=== PATIENT | male | born 1965 | race Caucasian/White ===

== ENCOUNTER 2025-02-23 23:54 | Inpatient (IN) ==
[2025-02-24] MEDS: SODIUM CHLORIDE 0.9% 1,000 ML IV ONE (00:05)
--- NOTE | 2025-02-24 00:08 | Emergency Department Note ---
Impression & Plan Atrial fibrillation with controlled ventricular rate, Atrial fibrillation, new onset, Hypophosphatemia ED Provider Note NAME: HOLLY [id number] FREDIS AGE: 59 SEX: M : 1965 ARRIVES VIA: Ambulance INFORMANT: Patient ED PROVIDER(S): Sage Peacock MD CHIEF COMPLAINT: Atrial fibrillation, palpitations, chest pain PLAN: Disposition: Admit MEDICAL DECISION MAKING: The patient is a 59-year-old gentleman, presenting inmate at [facility] who reports a history of tachycardia where he was prescribed metoprolol as needed by his doctor in the past, hypertension who presents to the emergency department from his residential facility, referred by the [facility], for evaluation of tachycardia in the 160-200s suspected to be in atrial fibrillation. Patient was given his oral metoprolol by the [facility] without significant effect. Upon EMS arrival they did attempt fluid challenge but did remain with heart rate in the 160s. Per my discussion with EMS crew on medical command they did administer 10 mg of IV diltiazem without significant change in rate still in the 150s-160s. The patient reports having significant palpitations prior to presentation of [facility] but at this time denies any particular sensation of palpitations or heart racing despite his heart rate in the 150s-160s. He reports having mild amount of left lower anterior chest pain which resolves without intervention. He denies any recent illness including fevers, chills, cough, congestion, GI or symptoms. On evaluation the patient is no acute distress, afebrile heart in the 160s in atrial fibrillation with blood pressure 140/80s and vital signs otherwise stable. Appears clinically dry. EKG demonstrates atrial fibrillation with RVR with a rate of [address] elevation or depression. Chest x-ray negative for acute cardiopulmonary process per my preliminary independent interpretation. WBC, H/H and platelets within normal limits. Chemistry without metabolic acidosis. Phosphorus 1.8 with oral repletion provided. Electrolytes otherwise unremarkable. LFTs are unremarkable. High-sensitivity troponin is 3.7, within normal limits. Lipase normal. TSH within limits. UA without evidence of infection. Urine drug screen was negative. Patient was treated with IV fluid hydration and 20 mg dose of diltiazem in addition to the 10 mg that he had received prior to arrival. Patient subsequently had effective rate control to the 80s. Patient agrees with plan for admission for further management. Case was [facility] who will evaluate the patient for admission. Further management including additional maintenance rate control and anticoagulation per admitting team. Triage Nursing notes reviewed and agree them. Prior/external medical records reviewed Vital Signs: reviewed Differential diagnosis: Premature contractions, electrolyte abnormality, cardiac dysrhythmia, thyroid dysfunction, pulmonary embolism, infection, gastrointestinal, as well as other pathologies. ER treatment provided: See below. Diagnostics interpreted by me: ECG: Atrial fibrillation with RVR, 157 bpm, no ectopy, nonspecific ST and T wave abnormality, no overt ST elevation or depression, QTc 478, QRS 84. Cardiac Monitoring: An order for continuous cardiac monitoring was placed and demonstrated Atrial fibrillation with RVR, 157 bpm, no ectopy. Laboratory studies: See below Imaging studies: See below [facility]ation([facility] HPI: Per MDM. ROS: See above HPI for pertinent positives & negatives. A total of 10 systems reviewed and were otherwise negative. VITALS:See Below PHYSICAL EXAMINATION: GENERAL: Awake, alert, in no distress, BMI 27.8. HENT: Normocephalic, atraumatic. Oropharynx with dry mucous membranes and otherwise unremarkable. EYES: Normal conjunctiva. Sclera non-icteric. NECK: Supple. No nuchal rigidity. FROM. No JVD. RESPIRATORY: Clear to auscultation. CARDIAC: Tachycardic rate, irregular rhythm. Extremities warm and well perfused. Pulses equal. ABDOMEN: Soft, non-distended. No tenderness to palpation. No rebound or guarding. No masses. MUSCULOSKELETAL: Chest examination reveals no tenderness. The back is symmetrical on inspection without obvious abnormality. There is no CVA tenderness to palpation. No joint edema. LOWER EXTREMITIES: Calves are equal size bilaterally and non-tender. No edema. No discoloration. NEURO: Normal sensorium. No sensory or motor deficits noted. SKIN: No rash or jaundice noted. ED COURSE: Critical Care: I have personally spent greater than 35 minutes of critical care time in the direct management of this patient. This includes bedside care, interpretation of diagnostic studies, and testing, discussion with consultants, patient, and family members, and other required patient management activities. This 35 minutes is in excess of all separately billable procedures. Sage Peacock MD Past Med/Surg History Problem List (Updated 02/24/25 @ 13:20 by Josue Singh DO) Paroxysmal atrial fibrillation with rapid ventricular response Family history of hypercoagulable state History of gastric ulcer Dyslipidemia, goal LDL below 100 HTN (hypertension) Atrial fibrillation with rapid ventricular response Hypophosphatemia (Acute) Atrial fibrillation, new onset (Acute) Atrial fibrillation with controlled ventricular rate (Acute) Social History Smoking Status: Never smoker Second Hand Exposure: No; Do You Dip or Chew Tobacco: No; Tobacco Cessation Education Requested by Patient: No Hx Alcohol Use: No Hx Substance Use: No Preferred Language: Croatian Communication Ability: Effective Cover Stripper Required: No Beliefs That Will Affect Care: None Current Living Situation: Other Current Living Situation Comment: [facility] Other Information That Helps Us Care for You: No Feels Safe at Home: Yes Safety Concerns: Feels Safe At This Time Assistive Devices: None Allergies Allergies Allergy/AdvReac Type Severity Reaction Status Date / Time Sulfa (Sulfonamide Allergy Unknown Unknown Verified 02/24/25 00:17 Antibiotics) Home Meds Home Medications Medication Instructions Recorded Confirmed aspirin 81 mg tablet,delayed 81 mg PO DAILY 02/24/25 02/24/25 release atorvastatin 20 mg tablet 20 mg PO DAILY 02/24/25 02/24/25 losartan 25 mg tablet 25 mg PO DAILY 02/24/25 02/24/25 metoprolol tartrate 25 mg tablet 12.5 mg PO BID PRN Tachycardia 02/24/25 02/24/25 omeprazole 20 mg capsule,delayed 20 mg PO BID 02/24/25 02/24/25 release Results & Data (ED) Vital Signs Vital Signs - 24 hr 02/23/25 23:54 02/23/25 23:54 02/23/25 23:54 Temperature 36.6 C 36.6 C Temperature Source Oral Oral Pulse Rate 157 H Pulse Rate [Apical] 154 H Pulse Rate from SpO2 Sensor Pulse Rhythm Regular Pulse Rhythm [Apical] Regular Pulse Strength Normal Pulse Strength [Apical] Normal Respiratory Rate 18 18 Respiratory Effort / Characteristics Non-Labored Spontaneous Non-Labored Spontaneous Respiratory Depth Normal Normal Respiratory Pattern Regular Regular Blood Pressure 145/85 H Blood Pressure [Right Arm] 145/85 H Blood Pressure Mean 105 Blood Pressure Mean [Right Arm] 105 Blood Pressure Position Semi-fowlers Blood Pressure Position [Right Arm] Semi-fowlers Pulse Oximetry 99 98 98 Oxygen Delivery Method Room Air Room Air Room Air Sepsis Recent Fever Within 48 Hours No Sepsis New/Unexplained Change in Mental Status N/A Sepsis Action Taken by Nursing No Action Required 02/23/25 23:57 02/23/25 23:59 02/24/25 00:01 Temperature Temperature Source Pulse Rate 157 H 162 H 155 H Pulse Rate [Apical] Pulse Rate from SpO2 Sensor Pulse Rhythm Pulse Rhythm [Apical] Pulse Strength Pulse Strength [Apical] Respiratory Rate 15 16 Respiratory Effort / Characteristics Respiratory Depth Respiratory Pattern Blood Pressure 146/107 H 145/85 H Blood Pressure [Right Arm] Blood Pressure Mean 124 104 Blood Pressure Mean [Right Arm] Blood Pressure Position Blood Pressure Position [Right Arm] Pulse Oximetry 95 95 Oxygen Delivery Method Sepsis Recent Fever Within 48 Hours Sepsis New/Unexplained Change in Mental Status Sepsis Action Taken by Nursing 02/24/25 00:02 02/24/25 00:24 02/24/25 00:30 Temperature Temperature Source Pulse Rate 158 H 63 Pulse Rate [Apical] 88 Pulse Rate from SpO2 Sensor Pulse Rhythm Regular Pulse Rhythm [Apical] Pulse Strength Pulse Strength [Apical] Respiratory Rate 18 17 14 Respiratory Effort / Characteristics Non-Labored Spontaneous Respiratory Depth Normal Respiratory Pattern Regular Blood Pressure 96/83 L Blood Pressure [Right Arm] 117/92 Blood Pressure Mean 88 Blood Pressure Mean [Right Arm] 100 Blood Pressure Position Blood Pressure Position [Right Arm] Pulse Oximetry 98 97 96 Oxygen Delivery Method Room Air Room Air Sepsis Recent Fever Within 48 Hours Sepsis New/Unexplained Change in Mental Status Sepsis Action Taken by Nursing 02/24/25 00:33 02/24/25 01:00 02/24/25 01:09 Temperature Temperature Source Pulse Rate 68 71 71 Pulse Rate [Apical] Pulse Rate from SpO2 Sensor 69 Pulse Rhythm Pulse Rhythm [Apical] Pulse Strength Pulse Strength [Apical] Respiratory Rate 14 12 Respiratory Effort / Characteristics Respiratory Depth Respiratory Pattern Blood Pressure 109/88 Blood Pressure [Right Arm] Blood Pressure Mean 95 Blood Pressure Mean [Right Arm] Blood Pressure Position Blood Pressure Position [Right Arm] Pulse Oximetry 98 98 Oxygen Delivery Method Sepsis Recent Fever Within 48 Hours Sepsis New/Unexplained Change in Mental Status Sepsis Action Taken by Nursing Laboratory Data Attestation: I reviewed the patient's lab results. 02/24/25 00:08 02/24/25 00:08 Lab Results 02/24/25 02/24/25 02/24/25 Range/Units 00:08 00:09 00:30 WBC 7.34 (4.8-10.8) K/ul RBC 5.31 (4.70-6.10) M/uL Hgb 15.8 (14.0-18.0) g/dl POC Hgb 14.3 (14.0-18.0) g/dl Hct 44.1 (42.0-52.0) % POC Hct 42 (42-52) % MCV 83.1 (80.0-100.0) fL MCH 29.8 (25.0-34.0) pg MCHC 35.8 (32.0-36.0) g/dL RDW Std Deviation 37.3 (36.4-46.3) fL RDW Coeff of Cailin 12.3 (11.5-14.5) % Plt Count 231 (130-400) K/uL MPV 9.6 (9.4-12.4) fL Immature Gran % (Auto) 0.3 % Neut % (Auto) 53.8 % Lymph % (Auto) 29.4 % [place] % (Auto) 11.3 % Eos % (Auto) 4.2 % Baso % (Auto) 1.0 % Neut # (Auto) 3.95 (1.40-6.50) K/uL Lymph # (Auto) 2.16 (1.20-3.40) K/uL [place] # (Auto) 0.83 H (0.11-0.59) K/uL Eos # (Auto) 0.31 (0.00-0.50) K/uL Baso # (Auto) 0.07 (0.00-0.20) K/uL Immature Gran # (Auto) 0.02 (0.01-0.20) K/uL PT Cancelled INR Cancelled POC Sodium 139 (135-144) mmol/L Sodium 139 (136-145) mmol/L POC Potassium 3.9 (3.3-5.0) mmol/L Potassium 3.9 (3.5-5.1) mmol/L POC Chloride 105 (101-112) mmol/L Chloride 107 (98-107) mmol/L Carbon Dioxide 24 (21-32) mmol/L POC Total CO2 22 L (24-31) mmol/L Anion Gap 8 (3-11) POC Anion Gap 17.0 (16-25) mmol/L POC BUN 13 (7-18) mg/dl BUN 14 (6-23) mg/dl Creatinine 0.91 (0.6-1.4) mg/dl POC Creatinine 0.9 (0.6-1.3) mg/dl Est Cr Clr Drug Dosing 95.0 ml/min eGFR 98.30 BUN/Creatinine Ratio 15.4 (10-20) Glucose 102 H (70-99(Fasting)) mg/dl POC Glucose (other) 101 H (70-99) mg/dl Calcium 8.8 (8.6-10.3) mg/dl POC Ioniz Calcium Lindsey 1.06 L (1.12-1.32) mmol/l Phosphorus 1.8 L (2.5-4.9) mg/dl Magnesium 2.0 (1.7-2.4) mg/dl Total Bilirubin 0.7 (0.2-1.0) mg/dl AST 18 (13-39) U/L ALT 18 (7-52) U/L Alkaline Phosphatase 79 (34-104) U/L Troponin I High Sens 3.7 (0-20) pg/ml Total Protein 6.2 (6.0-8.3) gm/dl Albumin 4.2 (3.4-5.0) gm/dl Globulin 2.0 L (2.5-4.0) gm/dl Albumin/Globulin Ratio 2.1 H (0.9-2) Lipase 21 (11-82) U/L TSH 3.429 (0.300-4.500) uIu/ml Urine Color Yellow Urine Appearance Clear (Clear) Urine pH 8.5 H (4.5-7.5) Ur Specific [place] 1.005 (1.000-1.030) Urine Protein Negative (Negative) Urine Glucose (UA) Negative (Negative) Urine Ketones Negative (Negative) Urine Blood Negative (Negative) Urine Nitrite Negative (Negative) Urine Bilirubin Negative (Negative) Urine Urobilinogen Negative (Negative) Ur Leukocyte Esterase Negative (Negative) Urine Comment Urine Opiates Screen Neg (Neg) Ur Methadone, Qual Neg (Neg) Urine Fentanyl Screen Neg (Neg) Urine Barbiturates Neg (Neg) Ur Phencyclidine (PCP) Neg (Neg) U Amphetamin/Meth Scrn Neg (Neg) MDMA (Ecstasy) Screen Neg (Neg) U Benzodiazepines Scrn Neg (Neg) Ur Cocaine Metabolite Neg (Neg) U Marijuana (THC) Screen Neg (Neg) Administered Medications Apixaban (Apixaban 5 Mg Tablet) 5 mg PO BID BUCKY Stop: 03/26/25 08:59 Last Admin: 02/24/25 09:02 Dose: 5 mg Documented By: LOYD Atorvastatin Calcium (Atorvastatin 20 Mg Tab) 20 mg PO DAILY BUCKY Stop: 03/26/25 08:59 Last Admin: 02/24/25 09:02 Dose: 20 mg Documented By: LOYD Metoprolol Succinate (Metoprolol Succ 25mg Ext Rel Tab) 25 mg PO BID BUCKY Stop: 03/26/25 11:44 Last Admin: 02/24/25 14:38 Dose: 25 mg Documented By: LOYD Pantoprazole Sodium (Pantoprazole 40 Mg Tab) 40 mg PO BID BUCKY Stop: 03/26/25 08:59 Last Admin: 02/24/25 09:02 Dose: 40 mg Documented By: LOYD Discontinued Medications Diltiazem HCl (Diltiazem Hcl 5 Mg/Ml 5 Ml Vial) 20 mg IV NOW STA Stop: 02/24/25 00:15 Last Admin: 02/24/25 00:22 Dose: 20 mg Documented By: MEAGAN Co-signed By: PATRICIA Sodium Chloride (Nss) 1,000 mls @ 999 mls/hr IV .Q1H1M ONE Stop: 02/24/25 01:02 Last Infusion: 02/24/25 02:11 Dose: Infused Documented By: Admin: 02/24/25 00:05 Dose: 999 mls/hr Documented By: IDD Potassium Phosphate 40 mmol/ (Sodium Chloride) 1,013.3333 mls @ 100 mls/hr IV ONE STA Stop: 02/24/25 11:06 Last Infusion: 02/24/25 11:41 Dose: Infused Documented By: Admin: 02/24/25 01:33 Dose: 100 mls/hr Documented By: CTK Sodium Chloride (Nss) 1,000 mls @ 75 mls/hr IV .[id number] STA Stop: 02/24/25 14:55 Last Infusion: 02/24/25 07:53 Dose: Infused Documented By: Admin: 02/24/25 02:04 Dose: 75 mls/hr Documented By: DANDRE Heparin Sodium/Dextrose (Heparin 84545 Unit/500 Ml D5w) 25,000 units in 500 mls @ 27 mls/hr IV .[id number] [facility]; Protocol Stop: 03/26/25 01:59 Last Titration: 02/24/25 07:53 Dose: Infused Documented By: LOYD Co-signed By: RUDOLPH Titration: 02/24/25 06:55 Dose: 1,350 units/hr, 27 mls/hr Documented By: MERVIN Co-signed By: LOYD Titration: 02/24/25 03:27 Dose: 1,350 units/hr, 27 mls/hr Documented By: MERVIN Co-signed By: HENOK Admin: 02/24/25 02:06 Dose: 1,350 units/hr, 27 mls/hr Documented By: DANDRE Co-signed By: ELADIA Ioversol (Optiray 320 125ml) 125 ml IV ONCE ONE Stop: 02/24/25 03:16 Last Admin: 02/24/25 03:15 Dose: 118 ml Documented By: ADELAIDE Losartan Potassium (Losartan Potassium 25 Mg Tab) 25 mg PO DAILY [facility] Stop: 03/26/25 08:59 Last Admin: 02/24/25 09:02 Dose: 25 mg Documented By: LOYD Metoprolol Tartrate (Metoprolol Tartrate 25 Mg Tab) 12.5 mg PO NOW STA Stop: 02/24/25 06:17 Last Admin: 02/24/25 06:55 Dose: 12.5 mg Documented By: MERVIN Nitroglycerin (Nitroglycerin Sl 0.4 Mg/Tab Tab) 0.4 mg SL NOW STA Stop: 02/24/25 01:16 Last Admin: 02/24/25 02:03 Dose: 0.4 mg Documented By: DANDRE Oxycodone HCl (Oxycodone Hcl Ir 5 Mg Tab (Immediate Release)) 5 mg PO NOW STA Stop: 02/24/25 02:17 Last Admin: 02/24/25 02:43 Dose: 5 mg Documented By: DANDRE Potassium Phosphate (Pot Phosphate Monobasic W/ Sod Tab) 2 tab PO NOW STA Stop: 02/24/25 00:52 Last Admin: 02/24/25 01:00 Dose: 2 tab Documented By: PJP Potassium Phosphate (Pot Phosphate Monobasic W/ Sod Tab) 2 tab PO ONE ONE Stop: 02/24/25 07:05 Last Admin: 02/24/25 11:32 Dose: 2 tab Documented By: CA Imaging Data Radiologist's Impression: Chest X-Ray 02/24/25 00:02 EXAM: XR chest 1V portable CLINICAL HISTORY: Chest pain, nonspecific TECHNIQUE: X-ray images of the chest are obtained in AP projection. COMPARISON: No prior studies are available for comparison. FINDINGS: Pulmonary Parenchyma: Lungs are clear bilaterally. No evidence of consolidation, collapse, or focal opacities. No pulmonary nodules are identified. No evidence of pleural effusion or pleural thickening. Heart and Mediastinum: Heart size and shape are normal. No mediastinal widening or masses. No hilar or mediastinal lymphadenopathy. Bony Thorax: Bony thorax appears intact without fractures or deformities. Soft Tissues: Soft tissues overlying the chest wall are unremarkable. Overlying monitor lead is seen. IMPRESSION: 1. No evidence of consolidation, collapse, or focal opacities. 2. No evidence of pleural effusion. Electronically signed by Johan Salamanca 02-24-2025 02:22 AM Discharge Plan Visit Data Chief Complaint: Cardiac Assessment Stated Complaint: CARDIAC ASSESSMENT ED Provider: Sage Peacock Discharge Problem: Atrial fibrillation with controlled ventricular rate, Atrial fibrillation, new onset, Hypophosphatemia Patient Disposition: Admitted As Inpatient Condition: Serious Discharge Instructions Interventions: ED Discharge Assessment Last Done: 02/24/25 02:50
[2025-02-24] MEDS: dilTIAZem HCl 5 MG/ML 5 ML VIAL IV STA (00:22)
[2025-02-24 00:24] LABS: Basophils # (auto) 0.07 K/uL (0.00-0.20); Eosinophils # (auto) 0.31 K/uL (0.00-0.50); Eosinophils % (auto) 4.2 %; Hematocrit (blood only) 44.1 % (42.0-52.0); Hemoglobin 15.8 g/dl (14.0-18.0); Immature Granulocytes # (auto) 0.02 K/uL (0.01-0.20); Immature Granulocytes % (auto) 0.3 %; Lymphocytes # (auto) 2.16 K/uL (1.20-3.40); Lymphocytes % (auto) 29.4 %; Mean Corpuscular Hemoglobin 29.8 pg (25.0-34.0); Mean Corpuscular Hgb Conc 35.8 g/dL (32.0-36.0); Mean Corpuscular Volume 83.1 fL (80.0-100.0); Mean Platelet Volume 9.6 fL (9.4-12.4); Monocytes # (auto) 0.83 K/uL (0.11-0.59); Monocytes % (auto) 11.3 %; Neutrophils # (auto) 3.95 K/uL (1.40-6.50); Neutrophils % (auto) 53.8 %; Platelet Count 231 K/uL (130-400); RDW Coefficient of Variation 12.3 % (11.5-14.5); RDW Standard Deviation 37.3 fL (36.4-46.3); Red Blood Count 5.31 M/uL (4.70-6.10); White Blood Count 7.34 K/ul (4.8-10.8)
[2025-02-24 00:42] LABS: Appearance Urine Clear (Clear); Bilirubin Urine Negative (Negative); Blood Urine Negative (Negative); Color Urine Yellow; Glucose Urine UA Negative (Negative); Ketones Urine Negative (Negative); Leukocyte Esterase Urine Negative (Negative); Nitrite Urine Negative (Negative); Protein Urine Negative (Negative); Specific Gravity Urine 1.005 (1.000-1.030); Urobilinogen Urine Negative (Negative); pH Urine 8.5 (4.5-7.5)
[2025-02-24 00:43] LABS: Albumin Globulin Ratio 2.1 (0.9-2); Albumin Level 4.2 gm/dl (3.4-5.0); BUN Creatinine Ratio 15.4 (10-20); Bilirubin,Total 0.7 mg/dl (0.2-1.0); Calcium 8.8 mg/dl (8.6-10.3); Phosphorus 1.8 mg/dl (2.5-4.9); Potassium 3.9 mmol/L (3.5-5.1); Total Protein 6.2 gm/dl (6.0-8.3)
[2025-02-24 00:49] LABS: Troponin I High Sensitivity 3.7 pg/ml (0-20)
[2025-02-24] MEDS ORDERED: POTASSIUM PHOS 3 MMOL/1 ML INFUSION IV STA (00:57)
[2025-02-24 00:58] LABS: Thyroid Stimulating Hormone 3.429 uIu/ml (0.300-4.500)
[2025-02-24] MEDS: POT PHOSPHATE MONOBASIC W/ SOD TAB PO STA (01:00)
[2025-02-24 01:09] LABS: Amphetamines+Metham, Urine Neg (Neg); Barbiturates, Urine Neg (Neg); Benzodiazepine, Urine Neg (Neg); Cocaine, Urine Neg (Neg); Fentanyl, Urine Neg (Neg); MDMA (Ecstacy), Urine Neg (Neg); Marijuana, Urine Neg (Neg); Methadone, Urine Neg (Neg); Opiate, Urine Neg (Neg); Phencyclidine, Urine Neg (Neg)
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
[2025-02-24] MEDS: POTASSIUM PHOSPHATE 40 MMOL in SODIUM CHLORIDE 0.9% 1,000 ML IV STA (01:33)
[2025-02-24] MEDS ORDERED: Heparin IV Adult Wt-Based Standard *NO* INITIAL Bolus Protocol IV STA (01:39)
[2025-02-24] MEDS ORDERED: oxyCODONE HCL IR 5 MG TAB (IMMEDIATE RELEASE) PO PRN (01:41)
[2025-02-24] MEDS ORDERED: LORazepam 0.5 MG TAB PO PRN (01:41)
[2025-02-24] MEDS ORDERED: PROMETHAZINE 6.25 MG/50.25 ML BAG IV PRN (01:41)
[2025-02-24] MEDS ORDERED: ACETAMINOPHEN 325 MG TAB PO PRN (01:43)
[2025-02-24] MEDS: NITROGLYCERIN SL 0.4 MG/TAB TAB SL STA (02:03)
[2025-02-24] MEDS: SODIUM CHLORIDE 0.9% 1,000 ML IV STA (02:04)
[2025-02-24] MEDS: HEPARIN 25000 UNIT/500 ML D5W 25,000 UNITS/500 ML BAG IV SCH (02:06)
[2025-02-24 02:24] LABS: Prothrombin Time 10.9 Seconds (9.0-12.0)
--- NOTE | 2025-02-24 02:24 | XRay Report ---
EXAM: XR chest 1V portable CLINICAL HISTORY: Chest pain, nonspecific TECHNIQUE: X-ray images of the chest are obtained in AP projection. COMPARISON: No prior studies are available for comparison. FINDINGS: Pulmonary Parenchyma: Lungs are clear bilaterally. No evidence of consolidation, collapse, or focal opacities. No pulmonary nodules are identified. No evidence of pleural effusion or pleural thickening. Heart and Mediastinum: Heart size and shape are normal. No mediastinal widening or masses. No hilar or mediastinal lymphadenopathy. Bony Thorax: Bony thorax appears intact without fractures or deformities. Soft Tissues: Soft tissues overlying the chest wall are unremarkable. Overlying monitor lead is seen. IMPRESSION: 1. No evidence of consolidation, collapse, or focal opacities. 2. No evidence of pleural effusion. Electronically signed by Johan Salamanca 02-24-2025 02:22 AM
[2025-02-24] MEDS: oxyCODONE HCL IR 5 MG TAB (IMMEDIATE RELEASE) PO STA (02:43)
[2025-02-24] MEDS: OPTIRAY 320 125ml IV ONE (03:15)
--- NOTE | 2025-02-24 03:57 | CT Scan Report ---
EXAM: CT angio chest PE protocol CLINICAL HISTORY: Chest pain. TECHNIQUE: CT angiography of the chest was performed with and without intravenous contrast with the following protocol: axial images with, reconstructed coronal and sagittal images. Non-contrast images were initially acquired, followed by contrast-enhanced images in arterial and venous phases. Intravenous contrast [name and volume] was administered using automated injection techniques. Bolus tracking was employed to optimize arterial phase imaging. One of these 3D techniques was utilized: Maximum Intensity Pixel (MIP), 3D Reconstructed Images, Volume Rendered Images, Surface Shaded Rendering. One of the following dose reduction techniques was utilized for this exam: Automated exposure control, adjustment of the mA and/or kV according to patient size, and use of iterative reconstruction. COMPARISON: Prior CR 02/23/2025 FINDINGS: Aorta and Great Vessels: Ascending Aorta: Normal in caliber, no aneurysm, dissection, or significant atherosclerosis. Aortic Arch: Normal in caliber, no aneurysm, dissection, or significant atherosclerosis. Descending Aorta: Normal in caliber, no aneurysm, dissection, or significant atherosclerosis. Pulmonary Arteries: The main pulmonary artery and its branches are patent. No evidence of pulmonary embolism or significant stenosis. Heart: Cardiac Chambers: Normal in size. No evidence of cardiomegaly. Pericardium: No pericardial effusion or thickening. Lungs and Pleura: Lungs are clear without evidence of consolidation, collapse, or focal lesions. No pleural effusion or pleural thickening. Mediastinum: No mediastinal mass or abnormal lymphadenopathy. Normal appearance of the trachea and central bronchi. Hilar Structures: Hilar structures are normal without enlargement. Chest Wall: No mass lesions or abnormalities in the chest wall. Vascular Structures: Superior Vena Cava: Patent without evidence of stenosis or thrombus. Inferior Vena Cava: Patent without evidence of stenosis or thrombus. Bones and Soft Tissues: No fractures, lytic, or blastic lesions of the visualized bony structures. Soft tissues are unremarkable. Cuts taken through the upper abdomen reveal left renal cortical simple cyst =[id number] mm IMPRESSION: No evidence of pulmonary embolism No evidence of consolidation, collapse, or focal lesions. Left renal cortical simple cyst. Electronically signed by Johan Salamanca 02-24-2025 03:56 AM
[2025-02-24] MEDS: METOPROLOL TARTRATE 25 MG TAB PO STA (06:55)
[2025-02-24 07:41] LABS: ANTI-Xa, UFH(UnfractionatedHep 1.28 IU/ml (0.3-0.7)
[2025-02-24] MEDS ORDERED: METOPROLOL TARTRATE 25 MG TAB PO SCH ×2 (09:00→21:00)
[2025-02-24] MEDS: ATORVASTATIN 20 MG TAB PO SCH (09:02)
[2025-02-24] MEDS: APIXABAN 5 MG TABLET PO SCH (09:02)
[2025-02-24] MEDS: LOSARTAN POTASSIUM 25 MG TAB PO SCH (09:02)
[2025-02-24] MEDS: PANTOprazole 40 MG TAB PO SCH (09:02)
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
[2025-02-24] MEDS ORDERED: Nursing to Pharmacy Communication SCH (10:30)
[2025-02-24] MEDS: POT PHOSPHATE MONOBASIC W/ SOD TAB PO ONE (11:32)
[2025-02-24] MEDS ORDERED: ACETAMINOPHEN 500 MG TAB PO PRN (13:11)
[2025-02-24] MEDS ORDERED: IBUPROFEN 600 MG TAB PO PRN (13:11)
[2025-02-24 13:17] LABS: iSTAT Creatinine 0.9 mg/dl (0.6-1.3); iSTAT Hemoglobin 14.3 g/dl (14.0-18.0); iSTAT Ionized Calcium 1.06 mmol/l (1.12-1.32); iSTAT Potassium 3.9 mmol/L (3.3-5.0)
--- NOTE | 2025-02-24 13:18 | Hospitalist Progress Note ---
Date of Service February 24, 2025 Assessment & Plan (1) Paroxysmal atrial fibrillation with rapid ventricular response: (2) Hypophosphatemia: (3) HTN (hypertension): Plan Patient 59-year-old gentleman with paroxysmal atrial fibrillation with rapid ventricular response Patient given additional doses of metoprolol this morning, rates are improving, continue metoprolol succinate twice daily Communication/conversation with cardiology team, at this point we will attempt to do rate control, agreeable with starting Eliquis. If patient continues to have paroxysms of rapid ventricular response will consider NELLIE cardioversion tomorrow. Extensive conversation with patient at bedside explaining his treatment options. At this time he is hopeful that he will be able to continue with just rate control, patient gives a history of a longstanding history of most likely paroxysms of atrial fibrillation that converts on his own. Will continue telemetry and monitor anticipate patient may convert to sinus rhythm on his own. Eliquis started for secondary stroke prevention. Anticipate patient will be discharged tomorrow pending his rates controlled. Admission and Anticipated Discharge Date Admission Date: February 24, 2025 Subjective Patient states that he feels much better now that his heart rate is controlled. Gives a history of what now is suspected be years of paroxysmal atrial fibrillation. Physical Exam Physical Exam: Constitutional: Alert HEENT: Mucous membranes moist. Lungs: Clear to auscultation, decreased, no wheezes rales or rhonchi CV: S1-S2, irregular irregular, no significant murmur Abdomen: Soft, nontender, nondistended Extremities: No significant edema Neuro: No focal deficits Psych: Cooperative, normal mood Results & Data Results & Data Vital Signs (Past 12 Hours) Vital Signs Temp Pulse Pulse Resp BP BP Pulse Ox 02/24/25 11:25 36.6 C 64 19 126/80 97 02/24/25 07:59 36.5 C 143 H 20 118/84 98 02/24/25 07:00 96 H 02/24/25 03:59 92 H 02/24/25 03:33 36.7 C 107 H 16 133/84 97 02/24/25 02:30 91 H 18 95/71 L 95 02/24/25 02:00 99 H 14 121/89 98 02/24/25 01:30 76 17 117/90 98 O2 Del Method 02/24/25 11:25 Room Air 02/24/25 07:59 Room Air 02/24/25 07:00 02/24/25 03:59 02/24/25 03:33 Room Air 02/24/25 02:30 02/24/25 02:00 02/24/25 01:30 Diagnostic Findings Reviewed imaging, laboratory and diagnostic studies. Pertinent findings as b elow. Troponin negative x 2 sets Echocardiogram ejection fraction 65 to 70%, dilated left atrium, no evidence of pulmonary hypertension CTA of the chest negative for PE, left renal cyst TSH 3.4
[2025-02-24] MEDS: METOPROLOL SUCC 25MG EXT REL TAB PO SCH (14:38)
[2025-02-25 06:37] LABS: Basophils # (auto) 0.05 K/uL (0.00-0.20); Basophils % (auto) 0.7 %; Eosinophils # (auto) 0.31 K/uL (0.00-0.50); Eosinophils % (auto) 4.4 %; Hematocrit (blood only) 46.5 % (42.0-52.0); Hemoglobin 16.5 g/dl (14.0-18.0); Immature Granulocytes # (auto) 0.02 K/uL (0.01-0.20); Immature Granulocytes % (auto) 0.3 %; Lymphocytes # (auto) 1.93 K/uL (1.20-3.40); Lymphocytes % (auto) 27.5 %; Mean Corpuscular Hgb Conc 35.5 g/dL (32.0-36.0); Mean Corpuscular Volume 84.5 fL (80.0-100.0); Mean Platelet Volume 9.6 fL (9.4-12.4); Monocytes # (auto) 0.54 K/uL (0.11-0.59); Monocytes % (auto) 7.7 %; Neutrophils # (auto) 4.18 K/uL (1.40-6.50); Neutrophils % (auto) 59.4 %; Platelet Count 211 K/uL (130-400); RDW Coefficient of Variation 12.4 % (11.5-14.5); RDW Standard Deviation 37.8 fL (36.4-46.3); White Blood Count 7.03 K/ul (4.8-10.8)
[2025-02-25 07:00] LABS: Calcium 8.7 mg/dl (8.6-10.3); Creatinine Clr Calc Pharmacy 98.6 ml/min; Phosphorus 3.1 mg/dl (2.5-4.9); Potassium 4.1 mmol/L (3.5-5.1)
[2025-02-25 08:00] VITALS: BP 105/77; RESP 19; TEMP 97.3; O2SAT 98
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
[2025-02-25 11:20] VITALS: PULSE 66
--- NOTE | 2025-02-25 11:35 | Cardiology Progress Note ---
Date of Service February 25, 2025 Assessment & Plan (1) Atrial fibrillation with rapid ventricular response: (2) HTN (hypertension): (3) Dyslipidemia, goal LDL below 100: (4) History of gastric ulcer: (5) Family history of hypercoagulable state: Plan Rate versus rhythm control strategy discussed. Risk versus benefit of transesophageal echocardiogram guided direct-current cardioversion reviewed. Patient declines procedure at this time. Prefers conservative medical treatment with metoprolol plus Eliquis. If he remains in atrial fibrillation, elective external direct-current cardioversion will be performed after 4 weeks of adequate anticoagulation. No further inpatient cardiac testing or intervention recommended at this time. Outpatient stress testing will be performed when patient has converted back to sinus rhythm. Josue Singh DO, [facility] Admission and Anticipated Discharge Date Admission Date: February 24, 2025 Subjective 59-year-old male seen and examined at the bedside. Currently asymptomatic from a cardiovascular perspective. Denies chest pain or palpitations. Telemetry reveals atrial fibrillation in the 80s. No lightheadedness or dizziness. Review of Systems Review of Systems: All systems reviewed & are unremarkable except as noted in Subjective Physical Exam Constitutional: well nourished; no acute distress Respiratory: normal respiratory effort; no respiratory distress Auscultation: lungs clear to auscultation bilaterally; no crackles, no rales, no rhonchi and no wheezes Cardiovascular: Rate/Rhythm: + irregularly irregular Heart Sounds: normal S1 and normal S2; no murmur Vessels: no JVD Extremities: no edema Gastrointestinal (Abdomen): Inspection/Auscultation: normal bowel sounds; abdomen not distended Percussion/Palpation: abdomen soft; abdomen nontender, no guarding and abdomen not rigid Neurologic: CN's II-XI intact bilaterally and moves all extremities; no focal motor deficits Results & Data Vital Signs (Past 12 Hours) Vital Signs Temp Pulse Pulse Resp BP Pulse Ox O2 Del Method 02/25/25 11:19 36.3 C L 66 19 105/77 98 02/25/25 08:00 36.3 C L 66 19 105/77 98 Room Air 02/25/25 05:52 76 02/25/25 03:30 36.5 C 68 18 111/87 97 Room Air 02/25/25 01:31 90 Laboratory Results CBC 02/25/25 Range/Units 06:00 WBC 7.03 (4.8-10.8) K/ul RBC 5.50 (4.70-6.10) M/uL Hgb 16.5 (14.0-18.0) g/dl Hct 46.5 (42.0-52.0) % Plt Count 211 (130-400) K/uL Neut # (Auto) 4.18 (1.40-6.50) K/uL Lymph # (Auto) 1.93 (1.20-3.40) K/uL [place] # (Auto) 0.54 (0.11-0.59) K/uL Eos # (Auto) 0.31 (0.00-0.50) K/uL Baso # (Auto) 0.05 (0.00-0.20) K/uL Comprehensive Metabolic Panel 02/25/25 Range/Units 06:00 Sodium 138 (136-145) mmol/L Potassium 4.1 (3.5-5.1) mmol/L Chloride 108 H (98-107) mmol/L Carbon Dioxide 25 (21-32) mmol/L BUN 16 (6-23) mg/dl Creatinine 0.80 (0.6-1.4) mg/dl Glucose 88 (70-99(Fasting)) mg/dl Calcium 8.7 (8.6-10.3) mg/dl Intake and Output 02/24/25 02/25/25 02/25/25 22:59 06:59 14:59 Output Total Balance -[phone] Output: # Bowel Movements Other: Other Intake Source NPO # Unmeasured Voids 5 1 Weight 80.6 kg 80.6 kg Weight Measurement Method Built in [facility] Patient Weight 02/26/25 06:59 Weight 80.6 kg (2) HTN (hypertension) Hypertension type: primary hypertension Qualified Code(s): I10 - Essential (primary) hypertension
--- NOTE | 2025-02-25 14:29 | Electrocardiogram Report ---
Test Reason : Blood Pressure : */* mmHG Vent. Rate : 157 BPM Atrial Rate : * BPM P-R Int : * ms QRS Dur : 84 ms QT Int : 296 ms P-R-T Axes : * 73 -26 degrees QTcB Int : 478 ms Atrial fibrillation with rapid ventricular response Nonspecific ST and T wave abnormality Abnormal ECG No previous ECGs available Confirmed by Vinny Hartman ([id number]) on 02/25/2025 2:29:39 PM Referred By: Mukund WIGGINS Confirmed By: Vinny Hartman
--- NOTE | 2025-02-25 14:32 | Electrocardiogram Report ---
Test Reason : Blood Pressure : */* mmHG Vent. Rate : 81 BPM Atrial Rate : * BPM P-R Int : * ms QRS Dur : 86 ms QT Int : 350 ms P-R-T Axes : * 75 51 degrees QTcB Int : 406 ms Atrial fibrillation Abnormal ECG When compared with ECG of 02/23/2025 HR has decreased Confirmed by Vinny Hartman ([id number]) on 02/25/2025 2:32:17 PM Referred By: Mukund WIGGINS Confirmed By: Vinny Hartman
--- NOTE | 2025-02-25 15:52 | Electrocardiogram Report ---
Test Reason : Blood Pressure : */* mmHG Vent. Rate : 116 BPM Atrial Rate : * BPM P-R Int : * ms QRS Dur : 86 ms QT Int : 340 ms P-R-T Axes : * 64 40 degrees QTcB Int : 472 ms Atrial fibrillation with rapid ventricular response with premature ventricular or aberrantly conducte d complexes Abnormal ECG When compared with ECG of 24-Feb-2025 00:25, (unconfirmed) HR has increased Confirmed by Vinny Hartman ([id number]) on 02/25/2025 3:51:59 PM Referred By: Mukund SCI Confirmed By: Vinny Hartman
== END 2025-02-25 13:51 | DRG 310 ==
LOC: ED 23:54 → 2E 02-24 01:25